=== PATIENT | male | born 1955 ===

== ENCOUNTER 2023-05-23 07:42 | Day surgery (SDC) | payer MEDICARE, BC ==
[2023-05-23] MEDS: Proparacaine 0.5% Ophth Soln 15 ML Bottle EYELF ONE ×2 (07:59→08:59)
[2023-05-23] MEDS ORDERED: Ondansetron 4 MG/2 ML SDV IVPUSH PRN (08:00)
[2023-05-23] MEDS ORDERED: Acetaminophen/Codeine 300-30 MG Tab PO PRN (08:00)
[2023-05-23] MEDS: Moxifloxacin 0.5% Ophth Soln 3 ML Bottle EYELF ONE (08:00)
[2023-05-23] MEDS ORDERED: Acetaminophen 325 MG Tab PO PRN (08:00)
[2023-05-23] MEDS: Phenylephrine 10% Ophth Soln 5 ML Bot EYELF PRN (08:01)
[2023-05-23] MEDS: Povidone-Iodine 5% Sterile Ophth Soln 30 ML Bottle EYELF ONE (08:01)
[2023-05-23] MEDS: Tropicamide 1% Ophth Soln 15 ML Bottle EYELF ONE (08:02)
[2023-05-23] MEDS: Timolol Maleate 0.5% Ophth Soln 5 ML Bottle EYELF ONE (08:03)
[2023-05-23] MEDS: Cataract Ophth Solution EYELF ONE (08:03)
[2023-05-23] MEDS: Sodium Chloride 0.9% 10 ML Syringe FLUSH PRN (08:08)
[2023-05-23] MEDS: Balanced Salt Solution Ophth Irrig 15 ML Bottle EYELF ONE (09:00)
[2023-05-23] MEDS: Lidocaine 1% 30 ML SDV ONE (09:07)
[2023-05-23] MEDS: Vancomycin 500 MG SDV EYELF ONE (09:08)
[2023-05-23] MEDS: Balanced Salt Solution Ophth Irrig 500 ML Bottle IOCULAR ONE (09:08)
[2023-05-23] MEDS: Chondroitin Sulfate/Hyaluronate Sodium Ophth Inj 0.75 ML Syringe EYELF ONE (09:09)
[2023-05-23] MEDS: Apraclonidine 0.5% Ophth Soln 5 ML Bot EYELF ONE (09:11)
[2023-05-23] MEDS: Diclofenac Sodium 0.1% Ophth Soln 5 ML Bottle EYELF ONE (09:12)
[2023-05-23] MEDS: Dexamethasone/Neomycin/Polymyxin B Ophth Oint 3.5 GM Tube EYELF ONE (09:12)
== END 2023-05-23 09:48 | disposition home or self-care (01) ==
LOC: DL.SDS 07:42
PROVIDERS: ATTEND Ophthalmology
DX: H25.812 Combined forms of age-related cataract, left eye (principal); I25.10 Atherosclerotic heart disease of native coronary artery without angina pectoris; I10 Essential (primary) hypertension; I48.0 Paroxysmal atrial fibrillation; K21.9 Gastro-esophageal reflux disease without esophagitis; E78.5 Hyperlipidemia, unspecified; J44.9 Chronic obstructive pulmonary disease, unspecified; F41.0 Panic disorder [episodic paroxysmal anxiety]; Z87.891 Personal history of nicotine dependence; Z88.5 Allergy status to narcotic agent; Z79.51 Long term (current) use of inhaled steroids; Z79.899 Other long term (current) drug therapy; Z90.89 Acquired absence of other organs; Z98.890 Other specified postprocedural states
CPT/HCPCS: A9270-GY; J3370; J3490; V2632

== ENCOUNTER 2023-06-06 09:13 | Day surgery (SDC) | payer MEDICARE, BC ==
[~2023-06-06 09:13] MED LIST: Acetaminophen 325 MG Tab PO PRN; Acetaminophen/Codeine 300-30 MG Tab PO PRN; Ondansetron 4 MG/2 ML SDV IVPUSH PRN
[2023-06-06] MEDS ORDERED: Midazolam 1 MG/ML 2 ML SDV IV ONE (09:14)
[2023-06-06] MEDS ORDERED: Sodium Chloride 0.9% 10 ML Syringe IV ONE (09:14)
[2023-06-06] MEDS ORDERED: Dexamethasone 4 MG/ML SDV IV ONE (09:14)
[2023-06-06] MEDS: Proparacaine 0.5% Ophth Soln 15 ML Bottle EYERT ONE ×2 (09:31→10:24)
[2023-06-06] MEDS: Moxifloxacin 0.5% Ophth Soln 3 ML Bottle EYERT ONE (09:32)
[2023-06-06] MEDS: Povidone-Iodine 5% Sterile Ophth Soln 30 ML Bottle EYERT ONE ×2 (09:32→10:23)
[2023-06-06] MEDS: Phenylephrine 10% Ophth Soln 5 ML Bot EYERT PRN (09:33)
[2023-06-06] MEDS: Tropicamide 1% Ophth Soln 15 ML Bottle EYERT ONE (09:33)
[2023-06-06] MEDS: Timolol Maleate 0.5% Ophth Soln 5 ML Bottle EYERT ONE (09:34)
[2023-06-06] MEDS: Sodium Chloride 0.9% 10 ML Syringe FLUSH PRN (09:35)
[2023-06-06] MEDS: Cataract Ophth Solution EYERT ONE (09:35)
[2023-06-06] MEDS: Lidocaine 1% 30 ML SDV ONE (10:23)
[2023-06-06] MEDS: Apraclonidine 0.5% Ophth Soln 5 ML Bot EYERT ONE (10:24)
[2023-06-06] MEDS: Balanced Salt Solution Ophth Irrig 500 ML Bottle IOCULAR ONE (10:24)
[2023-06-06] MEDS: Chondroitin Sulfate/Hyaluronate Sodium Ophth Inj 0.75 ML Syringe EYERT ONE (10:24)
[2023-06-06] MEDS: Vancomycin 500 MG SDV EYERT ONE (10:24)
[2023-06-06] MEDS: Diclofenac Sodium 0.1% Ophth Soln 5 ML Bottle EYERT ONE (10:25)
[2023-06-06] MEDS: Dexamethasone/Neomycin/Polymyxin B Ophth Oint 3.5 GM Tube EYERT ONE (10:25)
== END 2023-06-06 11:10 | disposition home or self-care (01) ==
LOC: DL.SDS 09:13
PROVIDERS: ATTEND Ophthalmology
DX: H25.811 Combined forms of age-related cataract, right eye (principal); J44.9 Chronic obstructive pulmonary disease, unspecified; I10 Essential (primary) hypertension; Z87.891 Personal history of nicotine dependence; Z88.5 Allergy status to narcotic agent; Z79.899 Other long term (current) drug therapy
CPT/HCPCS: 00142; A9270-GY; J1100; J2250; J3370; J3490; V2787-GY